=== PATIENT | male | born 1960 | race African-American/Black ===

== ENCOUNTER 2019-04-21 09:12 | Outpatient (CLI) | payer MEDICARE, MEDICAID ==
--- NOTE | 2019-04-21 13:06 | Diagnostic Imaging Report ---
Indication: Neck pain Technique: MRI examination of the cervical spine was performed in a 1.5 Delmy magnet. Sequences obtained include sagittal and axial T1 and T2 fast spin echo, and sagittal STIR. Comparison: none Findings: Bone marrow signal and the alignment are essentially normal. No paravertebral or paraspinous fluid collections, mass or edema identified. Spinal cord signal is normal throughout. There is no cord compression. Foramen magnum is unremarkable. C1-2 shows degenerative hypertrophic spurring with suggestion of a low signal sclerotic margins between the C1 ring and dens. C2-3 is unremarkable. C3-4 shows uncovertebral spurs with the evidence of mild foraminal stenosis. Concentric disc bulge demonstrated with the suggestion of mild endplate osteophytes. Compression of the thecal sac with maintenance of CSF around the cord. C4-5: Concentric disc bulge noted. Mild indentation of the thecal sac noted. C5-6: Moderate narrowing of intervertebral disc demonstrated. Concentric disc bulge and endplate spur formation. Moderate bilateral foraminal stenosis and mild central spinal stenosis suspected. Little to no CSF anterior and posterior to the cord at this level. C6-7: Narrowing of that are stable disc. Moderate bilateral foraminal stenosis and probable mild central stenosis demonstrated. C7-T1. No central stenosis. Mild bilateral foraminal stenosis suspected. IMPRESSION: Concentric disc bulges with endplate osteophyte formation (disc osteophyte complexes) at multiple levels. Multilevel uncovertebral arthropathy. Normal appearance of the cord. Degenerative spondylosis results in the following, as summarized: C5-6 moderate bilateral foraminal stenosis and mild central spinal stenosis. C6-7: Moderate bilateral foraminal stenosis and probable mild central stenosis. C7-T1 mild bilateral foraminal stenosis C3-4 mild foraminal stenosis
== END 2019-04-21 11:12 | disposition home or self-care (01) ==
LOC: MRI 09:12
DX: M54.2 Cervicalgia (principal); M48.02 Spinal stenosis, cervical region; M47.9 Spondylosis, unspecified; M12.9 Arthropathy, unspecified
CPT/HCPCS: 72141